=== PATIENT | male | born 1975 | race Caucasian/White ===

== ENCOUNTER 2019-03-13 16:35 | Outpatient (CLI) | payer OTHER ==
--- NOTE | 2019-03-14 08:27 | RAD ---
Exam: XR Elbow Lt 4 View STANDARD HISTORY: Left elbow pain COMPARISON: None FINDINGS: There is prominent subcutaneous soft tissue swelling seen posterior to the level of the elbow. This c ould be related to hematoma given history of recent injury. If there is concern for infection, MRI would be better study of choice. No acute fracture, dislocation, or other acute osseous abnormality is identified. IMPRESSION: Prominent subcutaneous soft tissue swelling posterior to the level of the elbow which could be relate d to soft tissue swelling and hematoma given history of recent injury. No underlying fracture is identified.
== END 2019-03-13 16:36 | disposition home or self-care (01) ==
LOC: BURRAD 16:35
PROVIDERS: ATTEND Nurse Practitioner Family
DX: M25.522 Pain in left elbow (principal)